=== PATIENT | female | born 1980 | race Caucasian/White ===

== ENCOUNTER 2018-06-20 06:13 | Inpatient (IN) | payer OTHER ==
[~2018-06-20 06:13] MED LIST: Buffered Lidocaine 0.9% SYRIN* 5 ML/SYR SYRINGE INTRADERM ONE; Famotidine IV* 10 MG/ML 2 ML (20 mg) IV ONE; Sodium Citrate/Citric Acid* 15 ML UDC PO ONE
[2018-06-20] MEDS ORDERED: Phenylephrine IV* 40 MCG/ML 10 ML SYRINGE ONE (07:36)
[2018-06-20] MEDS ORDERED: Ondansetron INJ* 2 MG/ML VIAL ONE (07:36)
[2018-06-20] MEDS ORDERED: OXYTOCIN* 10 UNITS/ML 1 ML VIAL ONE ×2 (07:36→08:53)
[2018-06-20] MEDS ORDERED: Morphine PF AMP (0.5MG/ML)* 5 MG/10 ML AMP ONE (07:36)
[2018-06-20] MEDS ORDERED: Dexamethasone IV* 4 MG/ML 1 ML (4 MG) ONE (07:36)
[2018-06-20] MEDS ORDERED: Lidocaine 2% PF* 10 ML AMP ONE (07:37)
[2018-06-20] MEDS ORDERED: Bupivacaine 0.25% W/EPI* 10 ML SDV ONE (07:37)
[2018-06-20] MEDS ORDERED: ceFOXitin 2 GM IVPREMIX* 2 GM/50 ML BAG ONE (08:00)
[2018-06-20] MEDS ORDERED: ceFOXitin 2 GM IVPREMIX* 2 GM/50 ML BAG IVPB ONE (08:03)
--- NOTE | 2018-06-20 08:09 | HP ---
General Information - General Information Maternal Age: 37 Grav: 2 Para: 1 SAB: 0 IEA: 0 Estimated Due Date: 07/12/18 Determined By: LMP Maternal Blood Type and Rh: A Negative - Results this Serology/RPR Result: Non-Reactive Rubella Result: Immune HBsAg Result: Negative HIV Result: Negative GBS Culture Result: Negative Past Medical History Delivery History: Hx Uncomplicated Vaginal Delivery Pertinent Past Medical History: Non-Contributory Pertinent Past Surgical History: See Records Pertinent Family History: Non-Contributory - Antepartal Records Antepartal Records: Reviewed, Complicated by: - Di/di twins, IUGR Review of Systems Constitutional: Comfortable CV Complaint: No Respiratory: Shortness of Breath: No Gastrointestinal: No Nausea/Vomiting, Normal Bowel Movement Genitourinary: No Dysuria, No Bleeding, No Leaking Fluid Musculoskeletal: No Complaint Neurological: No Headache Movement: Normal Exam Allergies/Adverse Reactions: Allergies No Known Allergies Allergy (Verified 12/13/16 09:56) - Measurements Height: 5 ft 5 in Weight: 165 lb Weight in lbs: 165.092555 Body Mass Index (BMI): 27.4 Pre- Weight: 135 lb Weight Gained This : 30 lbs and 0 ozs - Exam Breast: Breast Exam Deferred Extremities: No Edema Heart: Normal Rhythm/Heart Sounds HEENT: No Significant Findings - Abdominal Exam Abdomen Exam: Non-Tender - Ultrasound/Biophysical Profile Ultrasound Status: Bedside Exam - Baby A still breech, low in pelvic. Baby B vtx Targeted Exam Findings Cervical Exam: 3cm Effacement: 70% Station: -2 Presenting Part: Breech Membrane Status: Intact EFM Findings - External Monitor Findings Baseline Heart Rate: 130 - x2 External Monitor Findings: Accelerations Present, No Pattern of Variable or Late Decelerations, Variability Moderate, Baseline Stable Contractions: Irregular Assessment/Plan - Assessment @36.6wks with di/di twins baby A with IUGR and breech. Plan PCS - Obstetrical Risk Factors Obstetrical Risk Factors: , Assisted Reproduction, IUGR, Breech - Plan Plan: C/S Delivery
[2018-06-20] MEDS ORDERED: Nalbuphine* 10 MG/ML 1 ML VIAL IV PRN (09:01)
[2018-06-20] MEDS ORDERED: Ketorolac INJ* 30 MG/ML 1 ML VIAL IV PRN (09:01)
[2018-06-20] MEDS ORDERED: Ondansetron INJ* 2 MG/ML VIAL IV PRN (09:01)
[2018-06-20] MEDS ORDERED: oxyCODONE/Acetamin 5/325 MG* TAB PO PRN ×3 (09:01→11:00)
[2018-06-20] MEDS ORDERED: DiMENhydriNATE IV* 50 MG/ML VIAL IV PUSH PRN (09:01)
[2018-06-20] MEDS ORDERED: Naloxone* 0.4 MG/ML 1 ML VIAL IV PRN ×2 (09:01)
[2018-06-20] MEDS ORDERED: fentaNYL* 50 MCG/ML 2 ML VIAL (100 MCG VIAL) IV PRN (09:01)
[2018-06-20] MEDS ORDERED: Witch Hazel PAD* JAR TOPICAL PRN (11:00)
[2018-06-20] MEDS ORDERED: Zolpidem TAB* 5 MG PO PRN (11:00)
[2018-06-20] MEDS ORDERED: Ibuprofen TAB* 600 MG PO PRN (11:00)
[2018-06-20] MEDS ORDERED: Dibucaine 1% 28.35 GM TUBE PR PRN (11:00)
[2018-06-20] MEDS ORDERED: Glycerin ADULT SUPP PR PRN (11:00)
[2018-06-20] MEDS: Ibuprofen TAB* 600 MG PO SCH ×2 (11:08→17:06)
[2018-06-20] MEDS: Docusate CAP* 100 MG PO SCH ×2 (14:16→21:23)
[2018-06-20] MEDS: Simethicone TAB* 80 MG TAB.CHEW PO SCH ×2 (14:20→21:22)
--- NOTE | 2018-06-21 03:05 | OP ---
OPERATIVE NOTE: DATE OF OPERATION: 06/20/18 DATE OF : 78 SURGEON: Sharon Ascencio MD GUEST HISTORY CLERK: Sofia Alba CNM ANESTHESIA: Spinal. PRE-OP DIAGNOSES: 1. Intrauterine gestation at 36 and 6 weeks' gestational age. 2. Dichorionic diamniotic twin . 3. Baby A, intrauterine growth restriction and breech presentation. POST-OP DIAGNOSES: 1. Intrauterine gestation at 36 and 6 weeks' gestational age. 2. Dichorionic diamniotic twin . 3. Baby A, breech presentation. OPERATIVE PROCEDURE: Primary lower transverse section. FINDINGS: Baby A, female , Apgars 9 and 9, weight 5 pounds 7 ounces. Baby B, female infant, A pgars 9 and 9, weight 5 pounds 6 ounces. Normal-appearing placenta. Normal-appearing uterus, ovarie s, and tubes. ESTIMATED BLOOD LOSS: 500 mL. FLUIDS: Crystalloid. DRAINS: Rogers catheter. DESCRIPTION OF PROCEDURE: After informed consent was signed, the patient was taken to the operating room where she was given a spinal anesthesia that was found to be adequate. She was prepped and drap ed in the dorsal supine position with leftward lift. A Pfannenstiel skin incision was made with a sc alpel and carried down to the underlying layer of fascia. The fascia was incised on either side of t he midline and the fascial incision extended laterally with a combination of sharp and blunt dissecti on. The inferior edge of the fascial incision was grasped with Brayan clamps, tented up, and dissect ed down bluntly. Then, the superior edge of the fascial incision was grasped with Bryaan clamps, ten henna up, and dissected down with a combination of sharp and blunt dissection. The rectus muscles were in the midline and the peritoneum was entered bluntly. The peritoneal incision was extend ed with blunt pressure. The bladder blade was inserted and a transverse incision was made in the low er uterine segment with the scalpel. The incision was extended superiorly and inferiorly with blunt pressure. Baby A was found first in breech presentation. The feet were delivered followed by the tasha dy. The arms were rotated inwardly and delivered and the head was delivered in a flexed position. Th e cord was milked towards the baby and more than 30 seconds the cord was clamped x2 and cut, and the baby was handed to the can pusher. Baby B was in vertex presentation. The sac was ruptured of cl ear fluid and the head delivered followed by the shoulders and the rest of the body. The cord was al so milked towards the baby and after more than 30 seconds clamped x2 and cut, and the baby was handed to the can pusher. The placenta was delivered with fundal massage and gentle cord traction. The uterus was then exteriorized and cleared of clots and debris. The uterine incision was closed with 0 Vicryl in a running locked fashion with a second layer of suture imbricating the first. The abdome n was irrigated and the uterus was placed back into the abdominal cavity. The incision was inspected and good hemostasis was noted. The peritoneum was closed with 3-0 chromic in a running unlocked fas hion. The fascia was closed with 0 Vicryl in a running unlocked fashion. One suture of 3-0 was plac ed in the subcuticular layer to help bring the skin edges closer and the skin was then closed with 4- 0 Monocryl in a running subcuticular fashion. Mastisol and Steri-Strips were placed. The incision w as cleaned and dressed. The patient was then moved to the stretcher and taken to the recovery room i n stable condition. The uterus was massaged to remove any clots prior to leaving the operating room. Mom and babies were stable. [id number]/[facility] #: [id number]
[2018-06-21] MEDS: Ibuprofen TAB* 600 MG PO SCH ×5 (05:30→23:35)
[2018-06-21 06:31] LABS: ABS Basophils 0.1 10^3/ul (0-0.2); ABS Eosinophils 0.3 10^3/ul (0-0.6); ABS Lymphocytes 1.8 10^3/ul (1.0-4.8); ABS Monocytes 0.8 10^3/ul (0-0.8); ABS Neutrophils 6.9 10^3/ul (1.5-7.7); ABS Nucleated RBC 0 10^3/ul; Hematocrit 36 % (35-47); Hemoglobin 11.9 g/dl (12.0-16.0); Lymphocyte % 18.1 % (25-47); Mean Corpuscular HGB Conc 34 g/dl (31-36); Mean Corpuscular Hemoglobin 28 pg (27-31); Mean Corpuscular Volume 83 fL (80-97); Nucleated Red Blood Cells % 0.1; Platelet Count 139 10^3/ul (150-450); Red Blood Count 4.28 10^6/ul (4.00-5.40); Red Cell Distribution Width 14 % (10.5-15); White Blood Count 9.9 10^3/ul (3.5-10.8)
[2018-06-21] MEDS: Levothyroxine TAB* 137 MCG TAB PO SCH (06:34)
[2018-06-21] MEDS: Simethicone TAB* 80 MG TAB.CHEW PO SCH ×4 (08:10→21:14)
[2018-06-21] MEDS: Docusate CAP* 100 MG PO SCH ×3 (08:10→21:14)
[2018-06-21] MEDS: Acetaminophen TAB* 325 MG PO PRN ×4 (08:10→21:14)
[2018-06-21] MEDS ORDERED: Ferrous Gluconate TAB* 324 MG TAB PO SCH (09:00)
[2018-06-21] MEDS ORDERED: RHO D Immune Globulin (HUMAN)* 300 MCG = 1,500 I.U. INJ IM ONE (12:59)
[2018-06-22] MEDS: Acetaminophen TAB* 325 MG PO PRN ×5 (02:09→20:14)
[2018-06-22] MEDS: Ibuprofen TAB* 600 MG PO SCH ×4 (05:34→23:38)
[2018-06-22] MEDS: Levothyroxine TAB* 137 MCG TAB PO SCH (05:47)
[2018-06-22] MEDS: Simethicone TAB* 80 MG TAB.CHEW PO SCH ×4 (08:44→20:14)
[2018-06-22] MEDS: Docusate CAP* 100 MG PO SCH ×3 (08:44→20:14)
[2018-06-23] MEDS: Acetaminophen TAB* 325 MG PO PRN (03:50)
[2018-06-23] MEDS: Levothyroxine TAB* 137 MCG TAB PO SCH (06:20)
[2018-06-23] MEDS: Ibuprofen TAB* 600 MG PO SCH (06:20)
[2018-06-23 07:45] VITALS: BP 122/66
[2018-06-23] MEDS: Simethicone TAB* 80 MG TAB.CHEW PO SCH (08:54)
[2018-06-23] MEDS: Docusate CAP* 100 MG PO SCH (08:54)
== END 2018-06-23 11:08 | disposition home or self-care (01) | DRG 788 ==
LOC: MCHOB 06:13
PROVIDERS: ADMIT Obstetrics & Gynecology; ATTEND Obstetrics & Gynecology
PROC: 10D00Z1 Extraction of Products of Conception, Low, Open Approach (ICD-10-PCS; principal; 2018-06-20 07:45)
DX: O32.1XX1 Maternal care for breech presentation, fetus 1 (principal); O99.284 Endocrine, nutritional and metabolic diseases complicating childbirth; E03.9 Hypothyroidism, unspecified; O30.043 Twin pregnancy, dichorionic/diamniotic, third trimester; Z3A.36 36 weeks gestation of pregnancy; Z37.2 Twins, both liveborn
CPT/HCPCS: 36415; 85025; 85461; 86900; 86901; 88307; 90686; A9270-GY; J0694; J1100; J2001; J2405; J2590; J2790